=== PATIENT | female | born 1935 | race Caucasian/White ===

== ENCOUNTER → 2019-10-11 | Outpatient (CLI) | payer MEDICARE ==
[~2019-10-11] MED LIST: IOHEXOL-350 75 ML VIAL IV ONE
== END | disposition home or self-care (01) ==
LOC: RAH 07:43
PROVIDERS: ATTEND Family Medicine
DX: K76.89 Other specified diseases of liver (principal)
CPT/HCPCS: 71275; Q9967

== ENCOUNTER → 2019-11-24 | Outpatient (CLI) | payer MEDICARE | END | disposition home or self-care (01) | LOC: SHCH 10:37 | PROVIDERS: ATTEND Internal Medicine Cardiovascular Disease | DX: R06.00 Dyspnea, unspecified (principal) | CPT/HCPCS: 93306; 93356 ==

== ENCOUNTER → 2020-01-23 | Outpatient (CLI) | payer MEDICARE | END | disposition home or self-care (01) | LOC: SHCH 14:38 | PROVIDERS: ATTEND Internal Medicine Cardiovascular Disease | DX: I87.2 Venous insufficiency (chronic) (peripheral) (principal) | CPT/HCPCS: 93970 ==

== ENCOUNTER → 2020-02-12 | Outpatient (CLI) | payer MEDICARE | END | disposition home or self-care (01) | LOC: RAH 12:16 | PROVIDERS: ATTEND Internal Medicine Cardiovascular Disease | DX: I35.8 Other nonrheumatic aortic valve disorders (principal) | CPT/HCPCS: 93306; 93356 ==

== ENCOUNTER → 2020-02-16 | Outpatient (CLI) | payer MEDICARE ==
[~2020-02-16] MED LIST changes: -IOHEXOL-350 75 ML VIAL IV ONE; +REGADENOSON 0.4 MG/5 ML PF SYG IVP SCH
== END | disposition home or self-care (01) ==
LOC: SHCH 08:58
PROVIDERS: ATTEND Internal Medicine Cardiovascular Disease
DX: I50.1 Left ventricular failure, unspecified (principal); R07.9 Chest pain, unspecified
CPT/HCPCS: 78452; 93017; 96374; A9500 ×2; J2785

== ENCOUNTER 2020-03-03 01:31 | Inpatient (IN) | payer MEDICARE ==
[2020-03-03] MEDS ORDERED: ASPIRIN 325 MG TABLET ONE (01:50)
[2020-03-03 02:02] LABS: BASOPHILS % (AUTO) 1.8 % (0.0-5.0); EOSINOPHILS % (AUTO) 21.6 % (0.0-8.0); HEMATOCRIT 45.1 % (36-48); LYMPHOCYTES % (AUTO) 33.2 % (21.0-51.0); MEAN CORPUSCULAR HEMOGLOBIN 28.7 pg (27.0-33.0); MEAN CORPUSCULAR HGB CONC 31.9 g/dL (32.0-36.0); MONOCYTES % (AUTO) 15.4 % (3.0-13.0); NEUTROPHILS % (AUTO) 27.4 % (40.0-77.0); PLATELET COUNT (AUTO) 109 K/uL (130-400); RED BLOOD CELL COUNT(AUTO) 5.01 MIL/uL (4.00-5.50); RED CELL DISTRIBUTION WIDTH 15.8 % (11.0-15.5); WHITE BLOOD COUNT (AUTO) 19.2 K/uL (4.8-10.8)
[2020-03-03 02:12] LABS: CREATININE 0.8 mg/dL (0.5-1.5); POTASSIUM 3.7 mmol/L (3.5-5.1)
[2020-03-03 02:16] LABS: ALBUMIN 3.3 g/dL (3.5-5.0); BILIRUBIN,TOTAL 1.8 mg/dL (0.2-1.0); TOTAL PROTEIN, SERUM 5.7 g/dL (6.0-8.3)
[2020-03-03 02:19] LABS: INR 1.2 (0.85-1.15); PARTIAL THROMBOPLASTIN TIME 23.3 SEC (26.3-35.5); PROTHROMBIN TIME 12.9 SEC (9.6-11.6)
[2020-03-03] MEDS ORDERED: HEPARIN SODIUM 5000UNIT/ML 1ML VIAL ONE (02:44)
[2020-03-03] MEDS ORDERED: HEPARIN 25000 UNITS/250 ML D5W 250 ML IV ONE (02:44)
[2020-03-03] MEDS ORDERED: NITROGLYCERIN 0.4 MG SL TAB SL PRN (04:30)
[2020-03-03] MEDS ORDERED: MORPHINE SULFATE 2 MG/ML 1ML SYG IV PRN (04:30)
[2020-03-03] MEDS ORDERED: ONDANSETRON HCL 4 MG/2 ML VIAL IV PRN (04:30)
[2020-03-03] MEDS ORDERED: LACTULOSE 20 GM/30 ML UDCUP PO PRN (04:30)
[2020-03-03] MEDS ORDERED: ACETAMINOPHEN 325 MG TAB PO PRN ×2 (04:30)
[2020-03-03 04:59] LABS: THYROID STIMULATING HORMONE 3.12 uIU/mL (0.36-3.74)
[2020-03-03 05:15] LABS: APPEARANCE,URINE Cloudy (CLEAR); BILIRUBIN,URINE Small (NEGATIVE); COLOR,URINE Dark Yellow (YELLOW); GLUCOSE, URINE (UA) Negative (NEGATIVE); KETONES,URINE Negative (NEGATIVE); LEUKOCYTE ESTERASE ,URINE Trace (NEGATIVE); NITRATE,URINE Negative (NEGATIVE); OCCULT BLOOD,URINE Negative (NEGATIVE); PROTEIN,URINE Negative (NEGATIVE)
[2020-03-03 05:30] VITALS: BP 118/58
[2020-03-03] MEDS ORDERED: METO-408 PO (05:50)
[2020-03-03] MEDS ORDERED: POTA-9 PO (05:50)
[2020-03-03] MEDS ORDERED: FURO20TA4 PO (05:50)
[2020-03-03 07:06] LABS: BACTERIA,URINE Rare /HPF (None Seen); CALCIUM OXALATE CRYSTALS,UR Moderate /LPF (None Seen); MUCUS,URINE Rare LPF (None Seen); RBC,URINE 0-1 /HPF (0-1); SQUAMOUS EPITHELIAL CELL,UR Rare /HPF (0-2); WBC,URINE 0-1 /HPF (0-1)
[2020-03-03 07:51] VITALS: BP 100/53
[2020-03-03] MEDS ORDERED: HEPARIN 25000 UNITS/250 ML D5W 250 ML IV SCH (08:45)
[2020-03-03] MEDS ORDERED: ASPIRIN 81MG TAB.CHEW PO SCH (09:00)
[2020-03-03] MEDS ORDERED: METOPROLOL TARTRATE 25 MG TAB PO SCH (09:00)
[2020-03-03 10:18] LABS: BASOPHILS % (AUTO) 1.6 % (0.0-5.0); EOSINOPHILS % (AUTO) 20.4 % (0.0-8.0); HEMATOCRIT 38.1 % (36-48); LYMPHOCYTES % (AUTO) 39.8 % (21.0-51.0); MEAN CORPUSCULAR HEMOGLOBIN 28.7 pg (27.0-33.0); MEAN CORPUSCULAR HGB CONC 32.5 g/dL (32.0-36.0); MEAN CORPUSCULAR VOLUME 88.2 fL (79-99); MONOCYTES % (AUTO) 14.8 % (3.0-13.0); NEUTROPHILS % (AUTO) 22.9 % (40.0-77.0); PLATELET COUNT (AUTO) 84 K/uL (130-400); RED BLOOD CELL COUNT(AUTO) 4.32 MIL/uL (4.00-5.50); RED CELL DISTRIBUTION WIDTH 15.4 % (11.0-15.5); WHITE BLOOD COUNT (AUTO) 19.4 K/uL (4.8-10.8)
[2020-03-03] MEDS: FAMOTIDINE 20MG TAB 20 MG TAB PO SCH ×2 (10:42→20:49)
[2020-03-03 11:45] VITALS: BP 92/51
[2020-03-03] MEDS ORDERED: TICAGRELOR 90 MG TABLET PO SCH ×2 (11:45→21:00)
[2020-03-03] MEDS: METOPROLOL TARTRATE 25 MG TAB PO SCH ×3 (13:30→20:55)
[2020-03-03] MEDS ORDERED: CLOPIDOGREL BISULFATE 75 MG TAB PO SCH (13:30)
[2020-03-03] MEDS ORDERED: CLOPIDOGREL BISULFATE 300 MG TAB PO SCH (13:45)
[2020-03-03] MEDS ORDERED: IOHEXOL 350 MG/ML 100ML INFUS..BTL IV ONE (13:57)
[2020-03-03] MEDS ORDERED: METOPROLOL TARTRATE 1 MG/ML 5ML VIAL IV ONE (15:39)
[2020-03-03] MEDS ORDERED: METOPROLOL TARTRATE 1 MG/ML 5ML VIAL IV SCH (15:45)
[2020-03-03 16:23] VITALS: BP 109/70
[2020-03-03] MEDS ORDERED: SODIUM CHLORIDE 0.9% 500ML 500 ML IV SCH (17:30)
[2020-03-03 20:00] VITALS: BP_SYST 102; BP_SYST 143; BP_DIAS 51; BP_DIAS 76
[2020-03-03] MEDS: FUROSEMIDE 10 MG/ML 2ML VIAL IV SCH (20:50)
[2020-03-03] MEDS ORDERED: ATORVASTATIN CALCIUM 20 MG TABLET PO SCH (21:00)
[2020-03-04] VITALS (12 sets, daily range): BP systolic 88–121; BP diastolic 45–69
[2020-03-04 05:28] LABS: BASOPHILS % (AUTO) 1.8 % (0.0-5.0); EOSINOPHILS % (AUTO) 21.2 % (0.0-8.0); LYMPHOCYTES % (AUTO) 39.4 % (21.0-51.0); MEAN CORPUSCULAR HEMOGLOBIN 28.2 pg (27.0-33.0); MEAN CORPUSCULAR HGB CONC 32.1 g/dL (32.0-36.0); MONOCYTES % (AUTO) 14.1 % (3.0-13.0); NEUTROPHILS % (AUTO) 22.9 % (40.0-77.0); PLATELET COUNT (AUTO) 90 K/uL (130-400); RED BLOOD CELL COUNT(AUTO) 4.43 MIL/uL (4.00-5.50); RED CELL DISTRIBUTION WIDTH 15.6 % (11.0-15.5); WHITE BLOOD COUNT (AUTO) 19.2 K/uL (4.8-10.8)
[2020-03-04 05:43] LABS: INR 1.29 (0.85-1.15); PARTIAL THROMBOPLASTIN TIME 24.6 SEC (26.3-35.5); PROTHROMBIN TIME 13.8 SEC (9.6-11.6)
[2020-03-04 05:51] LABS: CREATININE 0.7 mg/dL (0.5-1.5); POTASSIUM 3.3 mmol/L (3.5-5.1)
[2020-03-04] MEDS ORDERED: CLOPIDOGREL BISULFATE 75 MG TAB PO SCH (09:00)
[2020-03-04] MEDS: FUROSEMIDE 10 MG/ML 2ML VIAL IV SCH (10:04)
[2020-03-04] MEDS: METOPROLOL TARTRATE 25 MG TAB PO SCH (10:05)
[2020-03-04] MEDS ORDERED: HEPARIN SODIUM 1000UNIT/ML 10ML VIAL ONE (10:12)
[2020-03-04] MEDS ORDERED: MIDAZOLAM HCL 1 MG/ML 2ML VIAL ONE (10:12)
[2020-03-04] MEDS ORDERED: NICARDIPINE HCL 25 MG/10 ML ML IV ONE (10:12)
[2020-03-04] MEDS ORDERED: NITROGLYCERIN 2 MG/VIAL VIAL IV ONE (10:12)
[2020-03-04] MEDS ORDERED: FENTANYL CITRATE PF 50 MCG/1 ML 2ML VIAL ONE (10:12)
[2020-03-04] MEDS ORDERED: IOHEXOL 350 MG/ML 100ML INFUS..BTL IV ONE (10:12)
[2020-03-04] MEDS ORDERED: LIDOCAINE HCL 2% 20ML ONE (10:13)
[2020-03-04] MEDS ORDERED: LIDOCAINE HCL-MPF 1% 2ML VIAL IV PRN (10:15)
[2020-03-04] MEDS ORDERED: MAGNESIUM 2GM PREMIX 50ML 50 ML IV PRN (10:15)
[2020-03-04] MEDS ORDERED: POTASSIUM CHLORIDE 20MEQ/100ML 100 ML IV PRN (10:15)
[2020-03-04] MEDS ORDERED: POTASSIUM CHLORIDE 10% ELIXIR 20 MEQ/15 ML UDCUP PO PRN (10:15)
[2020-03-04] MEDS ORDERED: POTASSIUM CHLORIDE 20 MEQ ERTAB PO PRN (10:15)
[2020-03-04] MEDS ORDERED: POTASSIUM CHLORIDE 20MEQ/100ML 100 ML IV ONE (10:23)
[2020-03-04] MEDS ORDERED: MAGNESIUM 2GM PREMIX 50ML 50 ML IV ONE (10:23)
[2020-03-04] MEDS ORDERED: FUROSEMIDE 20 MG TABLET PO SCH (12:30)
[2020-03-04] MEDS ORDERED: ASPI-1005 PO (12:59)
[2020-03-04] MEDS ORDERED: FURO20TA6 PO (12:59)
[2020-03-04] MEDS ORDERED: POTA-9 PO (12:59)
[2020-03-04] MEDS ORDERED: METO25 PO (12:59)
== END 2020-03-04 17:30 | disposition home or self-care (01) | DRG 280 ==
LOC: EDH 01:31 → EDHIP 04:18 → OBSVTOIN 04:18 → 4CH 05:18
PROVIDERS: ADMIT Internal Medicine; ATTEND Internal Medicine
PROC: 4A023N7 Measurement of Cardiac Sampling and Pressure, Left Heart, Percutaneous Approach (ICD-10-PCS; principal; 2020-03-04)
PROC: B2111ZZ Fluoroscopy of Multiple Coronary Arteries using Low Osmolar Contrast (ICD-10-PCS; 2020-03-04)
PROC: B41F1ZZ Fluoroscopy of Right Lower Extremity Arteries using Low Osmolar Contrast (ICD-10-PCS; 2020-03-04)
DX: I25.10 Atherosclerotic heart disease of native coronary artery without angina pectoris (principal); I50.31 Acute diastolic (congestive) heart failure; I21.A1 Myocardial infarction type 2; R00.2 Palpitations; D72.829 Elevated white blood cell count, unspecified; Z20.828 Contact with and (suspected) exposure to other viral communicable diseases; I87.2 Venous insufficiency (chronic) (peripheral); E04.1 Nontoxic single thyroid nodule; E78.5 Hyperlipidemia, unspecified; Z79.82 Long term (current) use of aspirin; Z79.899 Other long term (current) drug therapy; Z83.3 Family history of diabetes mellitus; Z98.51 Tubal ligation status
CPT/HCPCS: 36415; 71045; 75574; 80048; 80053; 80061; 81001; 82550; 83735; 83880; 84443; 84484; 85025; 85610; 85730; 87088; 87426; 93005; 93458; 99156; 99157; C1760; C1894; G0378; J1644; J1940; J2250; J3010; J3475; J3480; J3490; J7040; Q9967; U0003

== ENCOUNTER 2020-04-16 18:40 | Inpatient (IN) | payer MEDICARE ==
[~2020-04-16] VITALS: Ht 154.9 cm; Wt 67.6 kg
[~2020-04-16 18:40] MED LIST changes: +ASPI-1005 PO; +FURO20TA6 PO; +METO25 PO; +POTA-10 PO; -REGADENOSON 0.4 MG/5 ML PF SYG IVP SCH
[2020-04-16 19:12] LABS: BASOPHILS % (AUTO) 0.2 % (0.0-5.0); EOSINOPHILS % (AUTO) 0.1 % (0.0-8.0); HEMATOCRIT 33.5 % (36-48); LYMPHOCYTES % (AUTO) 40.8 % (21.0-51.0); MEAN CORPUSCULAR HEMOGLOBIN 29.7 pg (27.0-33.0); MEAN CORPUSCULAR HGB CONC 33.7 g/dL (32.0-36.0); MEAN CORPUSCULAR VOLUME 87.9 fL (79-99); MONOCYTES % (AUTO) 0.8 % (3.0-13.0); NEUTROPHILS % (AUTO) 57.3 % (40.0-77.0); PLATELET COUNT (AUTO) 41 K/uL (130-400); RED BLOOD CELL COUNT(AUTO) 3.81 MIL/uL (4.00-5.50); RED CELL DISTRIBUTION WIDTH 16.2 % (11.0-15.5); WHITE BLOOD COUNT (AUTO) 11.3 K/uL (4.8-10.8)
[2020-04-16 19:32] LABS: INR 1.19 (0.85-1.15); PROTHROMBIN TIME 12.5 SEC (9.6-11.6)
[2020-04-16 19:33] LABS: PARTIAL THROMBOPLASTIN TIME 25.9 SEC (26.3-35.5)
[2020-04-16] MEDS ORDERED: 0.9%NACL 1000ML 1,000 ML IV ONE ×2 (19:43→21:27)
[2020-04-16 19:46] LABS: B-TYPE NATRIURETIC PEPTIDE 691 pg/mL (0-100)
[2020-04-16 19:51] LABS: ALANINE AMINOTRANSFERASE 12 U/L (12-78); ALBUMIN 2.7 g/dL (3.5-5.0); ASPARTATE AMINOTRANSFERASE 17 U/L (10-37); BILIRUBIN,TOTAL 0.7 mg/dL (0.2-1.0); CARBON DIOXIDE 17 mmol/L (21-32); CHLORIDE 99 mmol/L (101-111); CREATINE KINASE, TOTAL 8 U/L (21-232); CREATININE 2.3 mg/dL (0.5-1.5); GLOMERULAR FILTR. RATE CALC 22 mL/min (>60); GLUCOSE,RANDOM 131 mg/dL (70-105); SODIUM SERUM 134 mmol/L (136-145); TOTAL PROTEIN, SERUM 4.9 g/dL (6.0-8.3)
[2020-04-16 19:53] LABS: APPEARANCE,URINE Cloudy (CLEAR); BILIRUBIN,URINE Negative (NEGATIVE); COLOR,URINE Yellow (YELLOW); GLUCOSE, URINE (UA) TRACE mg/dL (NEGATIVE); KETONES,URINE Negative (NEGATIVE); LEUKOCYTE ESTERASE ,URINE Trace (NEGATIVE); NITRATE,URINE Negative (NEGATIVE); OCCULT BLOOD,URINE Small (NEGATIVE); PH,URINE 5.5 (5.0-8.0); PROTEIN,URINE 300 mg/dL (NEGATIVE); UROBILINOGEN,URINE 0.2 mg/dL (0.2-1.0)
[2020-04-16 19:55] LABS: UREA NITROGEN, BLOOD 131 mg/dL (7-18)
[2020-04-16 19:56] LABS: CRP QUANTITATIVE < 2.00 mg/L (0.00-9.0)
[2020-04-16 20:12] LABS: BACTERIA,URINE Few /HPF (None Seen); SQUAMOUS EPITHELIAL CELL,UR 0-2 /HPF (0-2); URIC ACID CRYSTALS,URINE Many /LPF (None Seen)
[2020-04-16 20:33] LABS: CREATININE 2.3 mg/dL (0.5-1.5)
[2020-04-16] MEDS ORDERED: KAYEXALATE 15GM/60ML ONE (20:40)
[2020-04-16] MEDS ORDERED: CALCIUM GLUC 1GM/10ML VIAL IV ONE (20:40)
[2020-04-16] MEDS ORDERED: DEXTROSE 50%-WATER 50 ML DISP.SYRIN IV ONE (20:41)
[2020-04-16] MEDS ORDERED: SODIUM BICARB 50MEQ 50ML VIAL 50 ML ONE (20:41)
[2020-04-16] MEDS ORDERED: INSULIN HUMULIN R 100 UNIT/ML 3ML ONE (20:42)
[2020-04-16] MEDS ORDERED: 0.9%NACL 50ML 50 ML IV ONE (20:48)
[2020-04-16] MEDS ORDERED: ALBUTEROL 0.083% 2.5 MG/3 ML INH IH ONE (21:21)
[2020-04-16] MEDS ORDERED: GUAIFENESIN-DM 200/20 MG 10 ML PO PRN (21:45)
[2020-04-16] MEDS ORDERED: ACETAMINOPHEN 325 MG TAB PO PRN (21:45)
[2020-04-16] MEDS ORDERED: DiphenhydrAMINE HCL 50 MG/ML VIAL IV PRN (21:45)
[2020-04-16] MEDS ORDERED: DIPHENHYDRAMINE HCL 25 MG CAPSULE PO PRN (21:45)
[2020-04-16] MEDS ORDERED: NITROGLYCERIN 0.4 MG SL TAB SL PRN (21:45)
[2020-04-16] MEDS ORDERED: ONDANSETRON 4MG INJ IV PRN (21:45)
[2020-04-16] MEDS ORDERED: MAG/ALUM/SIMETH 30 ML UDCUP PO PRN (21:45)
[2020-04-16] MEDS ORDERED: LACTULOSE 20 GM/30 ML UDCUP PO PRN (21:45)
[2020-04-16 21:58] LABS: URIC ACID 44.3 mg/dL (2.6-7.2)
[2020-04-16 22:27] LABS: PHOSPHORUS 21.6 mg/dL (2.5-4.9)
[2020-04-16] MEDS: ALLOPURINOL 100 MG TABLET PO SCH (23:00)
[2020-04-16] MEDS ORDERED: DEXTROSE 5 % AND 0.9 % NACL 1,000 ML IV SCH (23:30)
[2020-04-16 23:31] LABS: ALBUMIN 2.4 g/dL (3.5-5.0); BILIRUBIN,TOTAL 0.6 mg/dL (0.2-1.0); CREATININE 2.5 mg/dL (0.5-1.5); TOTAL PROTEIN, SERUM 4.5 g/dL (6.0-8.3)
[2020-04-16 23:42] LABS: POTASSIUM 8.6 mmol/L (3.5-5.1)
[2020-04-16] MEDS ORDERED: DEXTROSE 5 % AND 0.9 % NACL 1,000 ML IV ONE (23:49)
[2020-04-17] VITALS (9 sets, daily range): BP systolic 98–124; BP diastolic 48–74
[2020-04-17] MEDS: CALCIUM GLUC 1GM/10ML VIAL IV SCH ×2 (01:15→08:13)
[2020-04-17] MEDS: FUROSEMIDE 20MG VIAL IV SCH ×2 (01:15→08:13)
[2020-04-17] MEDS ORDERED: SODIUM BICARB 50MEQ 50ML VIAL IV ONE (01:15)
[2020-04-17] MEDS: INSULIN HUMULIN R 100 UNIT/ML 3ML SQ SCH ×2 (01:15→08:13)
[2020-04-17] MEDS ORDERED: ALBUTEROL 0.083% 2.5 MG/3 ML INH IH ONE ×2 (01:15→02:03)
[2020-04-17] MEDS: DEXTROSE 50%-WATER 25 GM/50 ML VIAL IV SCH ×2 (01:15→08:13)
[2020-04-17] MEDS ORDERED: CALCIUM GLUC 1GM/10ML VIAL IV ONE (01:50)
[2020-04-17] MEDS ORDERED: FUROSEMIDE 20MG VIAL ONE (01:50)
[2020-04-17] MEDS ORDERED: SODIUM BICARB 50MEQ 50ML VIAL 50 ML ONE (01:50)
[2020-04-17] MEDS ORDERED: DEXTROSE 50%-WATER 50 ML DISP.SYRIN IV ONE (01:51)
[2020-04-17] MEDS ORDERED: INSULIN HUMULIN R 100 UNIT/ML 3ML ONE (01:52)
[2020-04-17 03:44] LABS: BASOPHILS % (AUTO) 0.2 % (0.0-5.0); EOSINOPHILS % (AUTO) 0.1 % (0.0-8.0); HEMATOCRIT 32.2 % (36-48); LYMPHOCYTES % (AUTO) 38.1 % (21.0-51.0); MEAN CORPUSCULAR HEMOGLOBIN 29.8 pg (27.0-33.0); MEAN CORPUSCULAR HGB CONC 33.2 g/dL (32.0-36.0); MEAN CORPUSCULAR VOLUME 89.7 fL (79-99); MONOCYTES % (AUTO) 0.9 % (3.0-13.0); NUCLEATED RED BLOOD CELLS 0.1 % (0.0-0.19); PLATELET COUNT (AUTO) 54 K/uL (130-400); RED BLOOD CELL COUNT(AUTO) 3.59 MIL/uL (4.00-5.50); RED CELL DISTRIBUTION WIDTH 16.3 % (11.0-15.5); WHITE BLOOD COUNT (AUTO) 13.8 K/uL (4.8-10.8)
[2020-04-17 04:15] LABS: ALBUMIN 2.5 g/dL (3.5-5.0); BILIRUBIN,TOTAL 0.6 mg/dL (0.2-1.0); CREATININE 2.6 mg/dL (0.5-1.5); TOTAL PROTEIN, SERUM 4.6 g/dL (6.0-8.3)
[2020-04-17 04:19] LABS: POTASSIUM 8.4 mmol/L (3.5-5.1)
[2020-04-17 07:14] LABS: ALBUMIN 2.2 g/dL (3.5-5.0); BILIRUBIN,TOTAL 0.6 mg/dL (0.2-1.0); CREATININE 2.6 mg/dL (0.5-1.5); TOTAL PROTEIN, SERUM 4.7 g/dL (6.0-8.3)
[2020-04-17 07:33] LABS: POTASSIUM 8.5 mmol/L (3.5-5.1)
[2020-04-17] MEDS: ALLOPURINOL 100 MG TABLET PO SCH (08:13)
[2020-04-17] MEDS ORDERED: KAYEXALATE 15GM/60ML PO SCH (08:30)
[2020-04-17 08:33] LABS: ALBUMIN 2.2 g/dL (3.5-5.0); BILIRUBIN,TOTAL 0.6 mg/dL (0.2-1.0); CREATININE 2.7 mg/dL (0.5-1.5); TOTAL PROTEIN, SERUM 4.7 g/dL (6.0-8.3)
[2020-04-17 08:38] LABS: POTASSIUM 8.3 mmol/L (3.5-5.1)
[2020-04-17] MEDS ORDERED: CALCIUM GLUC 1GM/10ML VIAL IV SCH (09:45)
[2020-04-17] MEDS ORDERED: CALCIUM GLUC 1GM 1 GM in 0.9%NACL 100ML 100 ML IV SCH (10:00)
[2020-04-17] MEDS ORDERED: FUROSEMIDE 100MG VIAL IV SCH (10:00)
[2020-04-17] MEDS: DEXTROSE 5 % AND 0.9 % NACL 1,000 ML IV SCH ×2 (10:07→22:35)
[2020-04-17] MEDS: SODIUM BICARBONATE 650 MG TAB PO SCH ×3 (10:08→22:33)
[2020-04-17 12:20] LABS: ALBUMIN 2.5 g/dL (3.5-5.0); BILIRUBIN,TOTAL 0.6 mg/dL (0.2-1.0); CREATININE 2.7 mg/dL (0.5-1.5); TOTAL PROTEIN, SERUM 4.7 g/dL (6.0-8.3)
[2020-04-17 12:27] LABS: POTASSIUM 8.6 mmol/L (3.5-5.1)
[2020-04-17 13:49] LABS: CHLORIDE,URINE RANDOM 59 mmol/L (110-250); CREATININE,URINE RANDOM 25 mg/dL (30-135); POTASSIUM,URINE RANDOM 44 mmol/L (25-125); SODIUM,URINE RANDOM 39 mmol/l (40-220)
[2020-04-17] MEDS: NYSTATIN 100000 UNIT/ML 5ML UDCUP PO SCH ×2 (15:09→22:33)
[2020-04-17] MEDS ORDERED: HEPARIN 1,000 UNIT VIAL ONE (15:16)
[2020-04-17] MEDS ORDERED: LIDOCAINE HCL 1% MDV 50ML VIAL ONE (15:17)
[2020-04-17 15:51] LABS: ALBUMIN 2.4 g/dL (3.5-5.0); BILIRUBIN,TOTAL 0.6 mg/dL (0.2-1.0); CREATININE 2.8 mg/dL (0.5-1.5); TOTAL PROTEIN, SERUM 4.7 g/dL (6.0-8.3)
[2020-04-17 15:55] LABS: POTASSIUM 8.3 mmol/L (3.5-5.1)
[2020-04-17] MEDS ORDERED: HEPARIN 5,000 UNIT VIAL ONE (20:05)
[2020-04-17 22:07] LABS: HEMATOCRIT 30.8 % (36-48)
[2020-04-17 22:21] LABS: ALBUMIN 2.6 g/dL (3.5-5.0); CREATININE 2.2 mg/dL (0.5-1.5)
[2020-04-17 23:11] LABS: % IRON SATURATION 73.4 % (22-44)
[2020-04-18 03:15] VITALS: BP 134/58
[2020-04-18] MEDS: NYSTATIN 100000 UNIT/ML 5ML UDCUP PO SCH ×2 (03:40→11:51)
[2020-04-18 04:54] LABS: BASOPHILS % (AUTO) 0.3 % (0.0-5.0); EOSINOPHILS % (AUTO) 0.3 % (0.0-8.0); HEMATOCRIT 28.1 % (36-48); LYMPHOCYTES % (AUTO) 27.9 % (21.0-51.0); MEAN CORPUSCULAR HEMOGLOBIN 29.4 pg (27.0-33.0); MEAN CORPUSCULAR HGB CONC 33.5 g/dL (32.0-36.0); MEAN CORPUSCULAR VOLUME 87.8 fL (79-99); MONOCYTES % (AUTO) 0.3 % (3.0-13.0); NEUTROPHILS % (AUTO) 70.1 % (40.0-77.0); PLATELET COUNT (AUTO) 19 K/uL (130-400); WHITE BLOOD COUNT (AUTO) 7.9 K/uL (4.8-10.8)
[2020-04-18] MEDS: DEXTROSE 5 % AND 0.9 % NACL 1,000 ML IV SCH (05:45)
[2020-04-18 07:59] VITALS: BP 116/52
[2020-04-18 09:06] LABS: ALBUMIN 2.3 g/dL (3.5-5.0); BILIRUBIN,TOTAL 0.7 mg/dL (0.2-1.0); CREATININE 2.6 mg/dL (0.5-1.5); TOTAL PROTEIN, SERUM 4.4 g/dL (6.0-8.3)
[2020-04-18] MEDS: SODIUM BICARBONATE 650 MG TAB PO SCH ×3 (09:31→20:29)
[2020-04-18] MEDS ORDERED: PHARMACY COMMUNICATION MISC SCH (10:15)
[2020-04-18] MEDS: BIOTENE 44.3 ML SOLUTION MM SCH ×3 (11:51→21:33)
[2020-04-18 12:00] VITALS: BP 117/51
[2020-04-18 16:00] VITALS: BP 151/67
[2020-04-18] MEDS: CLOTRIMAZOLE 10 MG TROCHE MM SCH ×2 (17:17→21:34)
[2020-04-18] MEDS ORDERED: HEPARIN 5,000 UNIT VIAL ONE (17:44)
[2020-04-18] MEDS ORDERED: DiphenhydrAMINE HCL 50 MG/ML VIAL IV SCH (17:45)
[2020-04-18] MEDS ORDERED: DEXAMETHASONE 10MG/ML 1ML VIAL 0 MG in 0.9%NACL 50ML 50 ML IV SCH (17:45)
[2020-04-18] MEDS ORDERED: DEXAMETHASONE SOD PHOSPHATE 4 MG/ML 1ML VIAL IVP SCH (18:00)
[2020-04-18 19:17] VITALS: BP 108/48
[2020-04-18] MEDS: ALLOPURINOL 100 MG TABLET PO SCH (23:00)
[2020-04-18 23:29] VITALS: BP 127/60
[2020-04-19 04:00] VITALS: BP 115/52
[2020-04-19 05:52] LABS: BASOPHILS % (AUTO) 0.7 % (0.0-5.0); HEMATOCRIT 25.7 % (36-48); LYMPHOCYTES % (AUTO) 31.5 % (21.0-51.0); MEAN CORPUSCULAR HGB CONC 33.1 g/dL (32.0-36.0); MEAN CORPUSCULAR VOLUME 87.7 fL (79-99); MONOCYTES % (AUTO) 0.2 % (3.0-13.0); NEUTROPHILS % (AUTO) 64.8 % (40.0-77.0); PLATELET COUNT (AUTO) 23 K/uL (130-400); RED BLOOD CELL COUNT(AUTO) 2.93 MIL/uL (4.00-5.50); RED CELL DISTRIBUTION WIDTH 15.6 % (11.0-15.5); WHITE BLOOD COUNT (AUTO) 4.6 K/uL (4.8-10.8)
[2020-04-19 06:20] LABS: ALBUMIN 2.3 g/dL (3.5-5.0); BILIRUBIN,TOTAL 0.9 mg/dL (0.2-1.0); CREATININE 2.4 mg/dL (0.5-1.5); MAGNESIUM 2.6 mg/dL (1.80-2.40); PHOSPHORUS 12.8 mg/dL (2.5-4.9); POTASSIUM 5.9 mmol/L (3.5-5.1); TOTAL PROTEIN, SERUM 4.6 g/dL (6.0-8.3); URIC ACID 25.1 mg/dL (2.6-7.2)
[2020-04-19 07:52] VITALS: BP 114/62
[2020-04-19] MEDS: INSULIN HUMULIN R 100 UNIT/ML 3ML SQ SCH (09:11)
[2020-04-19] MEDS: FUROSEMIDE 20MG VIAL IV SCH (09:11)
[2020-04-19] MEDS: DEXTROSE 50%-WATER 25 GM/50 ML VIAL IV SCH (09:11)
[2020-04-19] MEDS: CLOTRIMAZOLE 10 MG TROCHE MM SCH ×4 (09:13→20:16)
[2020-04-19 09:14] LABS: HEPATITIS Bs ANTIGEN SCREEN P Negative (Negative)
[2020-04-19] MEDS: SODIUM BICARBONATE 650 MG TAB PO SCH ×3 (09:14→20:16)
[2020-04-19] MEDS: BIOTENE 44.3 ML SOLUTION MM SCH ×3 (09:16→20:17)
[2020-04-19 12:52] VITALS: BP 119/60
[2020-04-19 16:53] VITALS: BP 107/66
[2020-04-19] MEDS: ALLOPURINOL 100 MG TABLET PO SCH (17:12)
[2020-04-19 19:28] VITALS: BP 116/62
[2020-04-19 23:23] VITALS: BP 118/58
[2020-04-20] MEDS: INSULIN HUMULIN R 100 UNIT/ML 3ML SQ SCH ×2 (01:15→20:15)
[2020-04-20] MEDS: FUROSEMIDE 20MG VIAL IV SCH ×2 (01:15→19:51)
[2020-04-20 03:35] VITALS: BP 116/58
[2020-04-20 05:18] LABS: BASOPHILS % (AUTO) 0.8 % (0.0-5.0); HEMATOCRIT 23.8 % (36-48); LYMPHOCYTES % (AUTO) 26.7 % (21.0-51.0); MEAN CORPUSCULAR HEMOGLOBIN 29.4 pg (27.0-33.0); MEAN CORPUSCULAR HGB CONC 33.2 g/dL (32.0-36.0); MEAN CORPUSCULAR VOLUME 88.5 fL (79-99); MONOCYTES % (AUTO) 0.4 % (3.0-13.0); NEUTROPHILS % (AUTO) 62.8 % (40.0-77.0); PLATELET COUNT (AUTO) 14 K/uL (130-400); RED BLOOD CELL COUNT(AUTO) 2.69 MIL/uL (4.00-5.50); RED CELL DISTRIBUTION WIDTH 15.6 % (11.0-15.5); WHITE BLOOD COUNT (AUTO) 2.5 K/uL (4.8-10.8)
[2020-04-20 05:37] LABS: % IRON SATURATION 70.4 % (22-44)
[2020-04-20 05:44] LABS: CREATININE 2.2 mg/dL (0.5-1.5); PHOSPHORUS 9.7 mg/dL (2.5-4.9); POTASSIUM 4.9 mmol/L (3.5-5.1)
[2020-04-20 06:30] LABS: BAND NEUTROPHILS % (MANUAL) 5 % (0-2); EOSINOPHILS % (MANUAL) 5 % (1-6); LYMPHOCYTES % (MANUAL) 22 % (22-44); MONOCYTES % (MANUAL) 1 % (2-9); SEGMENTED NEUTROPHILS % 67 % (40-70)
[2020-04-20 06:31] LABS: MAN.DIFF COMMENT-IMPRESSION MANUAL DIFFERENTIAL; PLATELET MORPHOLOGY COMMENT MARKED DECREASE
[2020-04-20] MEDS: BIOTENE 44.3 ML SOLUTION MM SCH ×3 (07:54→20:24)
[2020-04-20] MEDS: CLOTRIMAZOLE 10 MG TROCHE MM SCH ×4 (07:54→20:24)
[2020-04-20] MEDS: ALLOPURINOL 100 MG TABLET PO SCH (07:54)
[2020-04-20] MEDS: SODIUM BICARBONATE 650 MG TAB PO SCH ×2 (07:54→13:39)
[2020-04-20] MEDS: DEXTROSE 50%-WATER 25 GM/50 ML VIAL IV SCH ×2 (08:07→19:50)
[2020-04-20 09:16] VITALS: BP 114/52
[2020-04-20 11:53] VITALS: BP 114/59
[2020-04-20 15:46] LABS: HEMATOCRIT 24.7 % (36-48); MEAN CORPUSCULAR HEMOGLOBIN 29.4 pg (27.0-33.0); MEAN CORPUSCULAR HGB CONC 33.2 g/dL (32.0-36.0); MEAN CORPUSCULAR VOLUME 88.5 fL (79-99); RED BLOOD CELL COUNT(AUTO) 2.79 MIL/uL (4.00-5.50); RED CELL DISTRIBUTION WIDTH 15.5 % (11.0-15.5); WHITE BLOOD COUNT (AUTO) 2.6 K/uL (4.8-10.8)
[2020-04-20 15:59] LABS: INR 1.06 (0.85-1.15); PROTHROMBIN TIME 11.3 SEC (9.6-11.6)
[2020-04-20 16:37] VITALS: BP 119/58
[2020-04-20] MEDS: CALCIUM AC 667MG CAP PO SCH (17:11)
[2020-04-20] MEDS ORDERED: SIMETHICONE 80 MG TAB.CHEW PO PRN (17:30)
[2020-04-20 20:00] VITALS: BP 124/64
[2020-04-21] VITALS: BP 120/59
[2020-04-21 04:00] VITALS: BP 108/54
[2020-04-21 05:18] LABS: EOSINOPHILS % (AUTO) 4.5 % (0.0-8.0); HEMATOCRIT 23.9 % (36-48); MEAN CORPUSCULAR HEMOGLOBIN 28.8 pg (27.0-33.0); MEAN CORPUSCULAR HGB CONC 33.1 g/dL (32.0-36.0); MEAN CORPUSCULAR VOLUME 87.2 fL (79-99); MONOCYTES % (AUTO) 2.3 % (3.0-13.0); NEUTROPHILS % (AUTO) 57.1 % (40.0-77.0); PLATELET COUNT (AUTO) 38 K/uL (130-400); RED BLOOD CELL COUNT(AUTO) 2.74 MIL/uL (4.00-5.50); RED CELL DISTRIBUTION WIDTH 15.5 % (11.0-15.5); WHITE BLOOD COUNT (AUTO) 1.8 K/uL (4.8-10.8)
[2020-04-21 05:45] LABS: CREATININE 3.7 mg/dL (0.5-1.5); MAGNESIUM 2.2 mg/dL (1.80-2.40); PHOSPHORUS 10.8 mg/dL (2.5-4.9); POTASSIUM 5.2 mmol/L (3.5-5.1); URIC ACID 19.1 mg/dL (2.6-7.2)
[2020-04-21] MEDS ORDERED: TBO-FILGRASTIM 300 MCG/0.5 ML ML SQ SCH (08:15)
[2020-04-21 08:23] VITALS: BP 129/65
[2020-04-21] MEDS: CALCIUM AC 667MG CAP PO SCH ×3 (09:26→17:00)
[2020-04-21] MEDS: CLOTRIMAZOLE 10 MG TROCHE MM SCH ×4 (09:26→20:28)
[2020-04-21] MEDS: ALLOPURINOL 100 MG TABLET PO SCH (09:26)
[2020-04-21] MEDS: BIOTENE 44.3 ML SOLUTION MM SCH ×3 (09:27→20:29)
[2020-04-21 10:45] VITALS: BP 107/61
[2020-04-21 16:52] VITALS: BP 139/61
[2020-04-21 18:43] LABS: EOSINOPHILS % (AUTO) 0.8 % (0.0-8.0); HEMATOCRIT 28.2 % (36-48); LYMPHOCYTES % (AUTO) 10.3 % (21.0-51.0); MEAN CORPUSCULAR HEMOGLOBIN 29.4 pg (27.0-33.0); MEAN CORPUSCULAR VOLUME 86.2 fL (79-99); MONOCYTES % (AUTO) 1.1 % (3.0-13.0); PLATELET COUNT (AUTO) 39 K/uL (130-400); RED BLOOD CELL COUNT(AUTO) 3.27 MIL/uL (4.00-5.50); RED CELL DISTRIBUTION WIDTH 15.3 % (11.0-15.5); WHITE BLOOD COUNT (AUTO) 2.6 K/uL (4.8-10.8)
[2020-04-21 19:02] LABS: ALBUMIN 2.6 g/dL (3.5-5.0); BILIRUBIN,TOTAL 1.5 mg/dL (0.2-1.0); CREATININE 3.4 mg/dL (0.5-1.5); POTASSIUM 5.2 mmol/L (3.5-5.1); TOTAL PROTEIN, SERUM 5.1 g/dL (6.0-8.3)
[2020-04-21 19:27] LABS: BAND NEUTROPHILS % (MANUAL) 1 % (0-2); LYMPHOCYTES % (MANUAL) 11 % (22-44); SEGMENTED NEUTROPHILS % 88 % (40-70)
[2020-04-21 19:28] LABS: MAN.DIFF COMMENT-IMPRESSION MANUAL DIFFERENTIAL
[2020-04-21 20:00] VITALS: BP 138/64
[2020-04-21] MEDS ORDERED: CEFTRIAXONE 1G VIAL IVP SCH (21:00)
[2020-04-21] MEDS: FUROSEMIDE 20MG VIAL IV SCH (23:09)
[2020-04-21] MEDS: INSULIN HUMULIN R 100 UNIT/ML 3ML SQ SCH (23:09)
[2020-04-21] MEDS: DEXTROSE 50%-WATER 25 GM/50 ML VIAL IV SCH (23:09)
[2020-04-21] MEDS: ACETAMINOPHEN 325 MG TAB PO PRN (23:15)
[2020-04-22] VITALS: BP 124/56
[2020-04-22 04:00] VITALS: BP 110/54
[2020-04-22 05:36] LABS: BASOPHILS % (AUTO) 0.5 % (0.0-5.0); HEMATOCRIT 23.7 % (36-48); LYMPHOCYTES % (AUTO) 16.8 % (21.0-51.0); MEAN CORPUSCULAR HEMOGLOBIN 28.9 pg (27.0-33.0); MEAN CORPUSCULAR HGB CONC 33.8 g/dL (32.0-36.0); MEAN CORPUSCULAR VOLUME 85.6 fL (79-99); MONOCYTES % (AUTO) 1.9 % (3.0-13.0); NEUTROPHILS % (AUTO) 73.3 % (40.0-77.0); PLATELET COUNT (AUTO) 21 K/uL (130-400); RED BLOOD CELL COUNT(AUTO) 2.77 MIL/uL (4.00-5.50); RED CELL DISTRIBUTION WIDTH 15.1 % (11.0-15.5); WHITE BLOOD COUNT (AUTO) 2.1 K/uL (4.8-10.8)
[2020-04-22 06:05] LABS: ALBUMIN 2.2 g/dL (3.5-5.0); CREATININE 3.7 mg/dL (0.5-1.5); PHOSPHORUS 10.7 mg/dL (2.5-4.9); TOTAL PROTEIN, SERUM 4.4 g/dL (6.0-8.3); URIC ACID 19.2 mg/dL (2.6-7.2)
[2020-04-22 07:50] VITALS: BP 102/47
[2020-04-22] MEDS: ALLOPURINOL 100 MG TABLET PO SCH (08:18)
[2020-04-22] MEDS: CALCIUM AC 667MG CAP PO SCH ×3 (08:18→17:15)
[2020-04-22] MEDS: BIOTENE 44.3 ML SOLUTION MM SCH ×3 (08:18→21:00)
[2020-04-22] MEDS: CLOTRIMAZOLE 10 MG TROCHE MM SCH ×4 (09:00→21:00)
[2020-04-22 11:19] VITALS: BP 118/50
[2020-04-22] MEDS ORDERED: VANCOMYCIN PROTOCOL PER PHARMACY IV SCH (14:00)
[2020-04-22] MEDS ORDERED: VANCOMYCIN 1G/250ML KIT 250 ML IV SCH (15:00)
[2020-04-22 16:10] VITALS: BP 124/75
[2020-04-22] MEDS ORDERED: HEPARIN 5,000 UNIT VIAL ONE (17:12)
[2020-04-22 20:00] VITALS: BP 115/54
[2020-04-23] VITALS: BP 116/62
[2020-04-23] MEDS: DEXTROSE 50%-WATER 25 GM/50 ML VIAL IV SCH ×2 (01:15→07:30)
[2020-04-23] MEDS: FUROSEMIDE 20MG VIAL IV SCH ×2 (01:15→07:31)
[2020-04-23] MEDS: INSULIN HUMULIN R 100 UNIT/ML 3ML SQ SCH ×2 (01:15→07:31)
[2020-04-23 04:00] VITALS: BP 106/53
[2020-04-23 05:23] LABS: BASOPHILS % (AUTO) 0.8 % (0.0-5.0); HEMATOCRIT 22.8 % (36-48); LYMPHOCYTES % (AUTO) 31.7 % (21.0-51.0); MEAN CORPUSCULAR HEMOGLOBIN 29.3 pg (27.0-33.0); MEAN CORPUSCULAR HGB CONC 33.8 g/dL (32.0-36.0); MEAN CORPUSCULAR VOLUME 86.7 fL (79-99); MONOCYTES % (AUTO) 7.1 % (3.0-13.0); NEUTROPHILS % (AUTO) 54.8 % (40.0-77.0); PLATELET COUNT (AUTO) 24 K/uL (130-400); RED BLOOD CELL COUNT(AUTO) 2.63 MIL/uL (4.00-5.50); RED CELL DISTRIBUTION WIDTH 15.3 % (11.0-15.5); WHITE BLOOD COUNT (AUTO) 1.3 K/uL (4.8-10.8)
[2020-04-23 05:54] LABS: ALBUMIN 2.2 g/dL (3.5-5.0); BILIRUBIN,TOTAL 0.6 mg/dL (0.2-1.0); POTASSIUM 3.9 mmol/L (3.5-5.1); TOTAL PROTEIN, SERUM 4.6 g/dL (6.0-8.3); URIC ACID 12.8 mg/dL (2.6-7.2)
[2020-04-23 07:46] VITALS: BP 118/59
[2020-04-23] MEDS: BIOTENE 44.3 ML SOLUTION MM SCH ×3 (09:00→21:01)
[2020-04-23] MEDS: CLOTRIMAZOLE 10 MG TROCHE MM SCH ×4 (09:47→21:00)
[2020-04-23] MEDS: CALCIUM AC 667MG CAP PO SCH ×3 (09:47→17:23)
[2020-04-23] MEDS: ALLOPURINOL 100 MG TABLET PO SCH (09:47)
[2020-04-23 11:44] VITALS: BP 108/49
[2020-04-23 16:07] VITALS: BP 121/62
[2020-04-23 19:27] VITALS: BP 146/79
[2020-04-23] MEDS: ACETAMINOPHEN 325 MG TAB PO PRN (23:05)
[2020-04-24 00:12] VITALS: BP 135/67
[2020-04-24 03:15] VITALS: BP 119/64
[2020-04-24 03:57] LABS: EOSINOPHILS % (AUTO) 1.1 % (0.0-8.0); MEAN CORPUSCULAR HEMOGLOBIN 29.7 pg (27.0-33.0); MEAN CORPUSCULAR VOLUME 87.5 fL (79-99); MONOCYTES % (AUTO) 13.6 % (3.0-13.0); NEUTROPHILS % (AUTO) 37.6 % (40.0-77.0); PLATELET COUNT (AUTO) 26 K/uL (130-400); RED BLOOD CELL COUNT(AUTO) 2.32 MIL/uL (4.00-5.50)
[2020-04-24 04:09] LABS: HEMATOCRIT 20.3 % (36-48); WHITE BLOOD COUNT (AUTO) 0.9 K/uL (4.8-10.8)
[2020-04-24 04:12] LABS: ALBUMIN 2.1 g/dL (3.5-5.0); BILIRUBIN,TOTAL 0.6 mg/dL (0.2-1.0); CREATININE 3.1 mg/dL (0.5-1.5); MAGNESIUM 1.8 mg/dL (1.80-2.40); PHOSPHORUS 7.6 mg/dL (2.5-4.9); POTASSIUM 3.5 mmol/L (3.5-5.1); TOTAL PROTEIN, SERUM 4.3 g/dL (6.0-8.3); URIC ACID 12.7 mg/dL (2.6-7.2)
[2020-04-24 07:29] VITALS: BP 108/54
[2020-04-24] MEDS: CLOTRIMAZOLE 10 MG TROCHE MM SCH ×2 (09:00→11:42)
[2020-04-24] MEDS: BIOTENE 44.3 ML SOLUTION MM SCH ×3 (09:00→20:24)
[2020-04-24] MEDS: ALLOPURINOL 100 MG TABLET PO SCH (09:59)
[2020-04-24] MEDS: CALCIUM AC 667MG CAP PO SCH ×2 (11:42→16:13)
[2020-04-24 11:50] VITALS: BP 104/60
[2020-04-24 12:03] LABS: HEMATOCRIT 24.6 % (36-48)
[2020-04-24 16:09] VITALS: BP 125/64
[2020-04-24] MEDS: CEFAZOLIN SODIUM 1 GM VIAL IVP SCH ×2 (16:12→20:24)
[2020-04-24 23:45] VITALS: BP 138/65
[2020-04-25] VITALS (7 sets, daily range): BP systolic 116–135; BP diastolic 56–71
[2020-04-25] MEDS: ACETAMINOPHEN 325 MG TAB PO PRN (03:22)
[2020-04-25 03:41] LABS: BASOPHILS % (AUTO) 0.9 % (0.0-5.0); EOSINOPHILS % (AUTO) 0.9 % (0.0-8.0); HEMATOCRIT 23.8 % (36-48); LYMPHOCYTES % (AUTO) 46.5 % (21.0-51.0); MEAN CORPUSCULAR HEMOGLOBIN 28.8 pg (27.0-33.0); MEAN CORPUSCULAR HGB CONC 32.8 g/dL (32.0-36.0); MEAN CORPUSCULAR VOLUME 87.8 fL (79-99); MONOCYTES % (AUTO) 20.2 % (3.0-13.0); NEUTROPHILS % (AUTO) 30.6 % (40.0-77.0); PLATELET COUNT (AUTO) 43 K/uL (130-400); RED BLOOD CELL COUNT(AUTO) 2.71 MIL/uL (4.00-5.50); RED CELL DISTRIBUTION WIDTH 15.1 % (11.0-15.5)
[2020-04-25 03:54] LABS: WHITE BLOOD COUNT (AUTO) 1.1 K/uL (4.8-10.8)
[2020-04-25 03:58] LABS: CREATININE 3.4 mg/dL (0.5-1.5); PHOSPHORUS 6.7 mg/dL (2.5-4.9); URIC ACID 11.7 mg/dL (2.6-7.2)
[2020-04-25] MEDS: CALCIUM AC 667MG CAP PO SCH ×3 (08:00→16:23)
[2020-04-25] MEDS: ALLOPURINOL 100 MG TABLET PO SCH (08:00)
[2020-04-25] MEDS: CEFAZOLIN SODIUM 1 GM VIAL IVP SCH ×2 (08:01→20:21)
[2020-04-25] MEDS: BIOTENE 44.3 ML SOLUTION MM SCH ×3 (08:03→20:21)
[2020-04-25] MEDS: TBO-FILGRASTIM 480 MCG/0.8 ML ML SQ SCH (22:49)
[2020-04-26] VITALS (9 sets, daily range): BP systolic 116–132; BP diastolic 54–65
[2020-04-26 05:49] LABS: BASOPHILS % (AUTO) 2.2 % (0.0-5.0); EOSINOPHILS % (AUTO) 0.5 % (0.0-8.0); HEMATOCRIT 28.3 % (36-48); LYMPHOCYTES % (AUTO) 21.5 % (21.0-51.0); MEAN CORPUSCULAR HEMOGLOBIN 29.4 pg (27.0-33.0); MEAN CORPUSCULAR HGB CONC 33.9 g/dL (32.0-36.0); MEAN CORPUSCULAR VOLUME 86.5 fL (79-99); MONOCYTES % (AUTO) 32.8 % (3.0-13.0); NEUTROPHILS % (AUTO) 42.5 % (40.0-77.0); PLATELET COUNT (AUTO) 41 K/uL (130-400); RED BLOOD CELL COUNT(AUTO) 3.27 MIL/uL (4.00-5.50); RED CELL DISTRIBUTION WIDTH 14.6 % (11.0-15.5); WHITE BLOOD COUNT (AUTO) 1.9 K/uL (4.8-10.8)
[2020-04-26 06:01] LABS: CREATININE 3.2 mg/dL (0.5-1.5); MAGNESIUM 1.8 mg/dL (1.80-2.40); POTASSIUM 3.1 mmol/L (3.5-5.1)
[2020-04-26] MEDS: CALCIUM AC 667MG CAP PO SCH ×3 (08:00→16:38)
[2020-04-26] MEDS ORDERED: TBO-FILGRASTIM 480 MCG/0.8 ML ML SQ SCH (09:00)
[2020-04-26] MEDS: CEFAZOLIN SODIUM 1 GM VIAL IVP SCH ×2 (09:00→09:42)
[2020-04-26] MEDS: BIOTENE 44.3 ML SOLUTION MM SCH ×3 (09:00→21:00)
[2020-04-26] MEDS: TBO-FILGRASTIM 480 MCG/0.8 ML ML SQ SCH (09:00)
[2020-04-26] MEDS: ALLOPURINOL 100 MG TABLET PO SCH (09:27)
[2020-04-26] MEDS ORDERED: KCL 20 MEQ ERTAB PO SCH (16:30)
[2020-04-27] VITALS: BP 139/69
[2020-04-27 06:03] LABS: BASOPHILS % (AUTO) 1.2 % (0.0-5.0); EOSINOPHILS % (AUTO) 0.2 % (0.0-8.0); HEMATOCRIT 27.2 % (36-48); LYMPHOCYTES % (AUTO) 11.3 % (21.0-51.0); MEAN CORPUSCULAR HEMOGLOBIN 28.8 pg (27.0-33.0); MEAN CORPUSCULAR HGB CONC 33.1 g/dL (32.0-36.0); MEAN CORPUSCULAR VOLUME 87.2 fL (79-99); MONOCYTES % (AUTO) 17.3 % (3.0-13.0); NEUTROPHILS % (AUTO) 68.2 % (40.0-77.0); PLATELET COUNT (AUTO) 63 K/uL (130-400); RED BLOOD CELL COUNT(AUTO) 3.12 MIL/uL (4.00-5.50)
[2020-04-27 06:34] LABS: CREATININE 2.9 mg/dL (0.5-1.5); MAGNESIUM 1.7 mg/dL (1.80-2.40); URIC ACID 9.2 mg/dL (2.6-7.2)
[2020-04-27 06:40] LABS: POTASSIUM 2.6 mmol/L (3.5-5.1)
[2020-04-27 08:00] VITALS: BP 113/53
[2020-04-27] MEDS: CEFAZOLIN SODIUM 1 GM VIAL IVP SCH (08:35)
[2020-04-27] MEDS: ALLOPURINOL 100 MG TABLET PO SCH (08:35)
[2020-04-27] MEDS: CALCIUM AC 667MG CAP PO SCH ×2 (08:35→12:06)
[2020-04-27] MEDS: BIOTENE 44.3 ML SOLUTION MM SCH ×2 (08:55→14:00)
[2020-04-27] MEDS ORDERED: KCL 20 MEQ ERTAB PO ONE (09:15)
[2020-04-27 11:11] VITALS: BP 119/59
[2020-04-27] MEDS ORDERED: KCL 20 MEQ ERTAB PO SCH (12:00)
[2020-04-27] MEDS ORDERED: MAGNESIUM 2GM PREMIX 50ML 50 ML IV SCH (12:30)
[2020-04-27] MEDS ORDERED: MAGNESIUM 2GM PREMIX 50ML 50 ML IV ONE (12:39)
[2020-04-27 16:00] VITALS: BP 121/60
[2020-04-27 19:31] VITALS: BP 135/66
[2020-04-27] MEDS ORDERED: TBO-FILGRASTIM 480 MCG/0.8 ML ML SQ SCH (21:00)
[2020-04-27 23:50] VITALS: BP 130/58
[2020-04-28 03:58] VITALS: BP 119/48
[2020-04-28 04:54] LABS: BASOPHILS % (AUTO) 0.9 % (0.0-5.0); EOSINOPHILS % (AUTO) 0.1 % (0.0-8.0); HEMATOCRIT 27.9 % (36-48); LYMPHOCYTES % (AUTO) 4.5 % (21.0-51.0); MEAN CORPUSCULAR HEMOGLOBIN 29.1 pg (27.0-33.0); MEAN CORPUSCULAR VOLUME 88.3 fL (79-99); MONOCYTES % (AUTO) 11.8 % (3.0-13.0); NEUTROPHILS % (AUTO) 77.1 % (40.0-77.0); PLATELET COUNT (AUTO) 82 K/uL (130-400); RED BLOOD CELL COUNT(AUTO) 3.16 MIL/uL (4.00-5.50); WHITE BLOOD COUNT (AUTO) 10.5 K/uL (4.8-10.8)
[2020-04-28 05:18] LABS: CREATININE 2.4 mg/dL (0.5-1.5); MAGNESIUM 1.7 mg/dL (1.80-2.40)
[2020-04-28 05:20] LABS: POTASSIUM 2.8 mmol/L (3.5-5.1)
[2020-04-28 08:00] VITALS: BP 122/51
[2020-04-28] MEDS ORDERED: ALLOPURINOL 100 MG TABLET PO SCH (08:46)
[2020-04-28] MEDS: BIOTENE 44.3 ML SOLUTION MM SCH ×3 (09:00→20:09)
[2020-04-28] MEDS ORDERED: CEFAZOLIN SODIUM 1 GM VIAL ONE (09:51)
[2020-04-28] MEDS: ALLOPURINOL 100 MG TABLET PO SCH (10:06)
[2020-04-28] MEDS: CEFAZOLIN SODIUM 1 GM VIAL IVP SCH ×2 (10:06→20:07)
[2020-04-28 11:50] VITALS: BP 112/53
[2020-04-28] MEDS ORDERED: KCL 20 MEQ ERTAB PO SCH (12:30)
[2020-04-28] MEDS ORDERED: MAGNESIUM 2GM PREMIX 50ML 50 ML IV SCH (12:30)
[2020-04-28 16:00] VITALS: BP 125/56
[2020-04-28 20:08] VITALS: BP 131/59
[2020-04-28 23:21] VITALS: BP 139/64
[2020-04-29 03:00] VITALS: BP 125/57
[2020-04-29 03:46] LABS: BASOPHILS % (AUTO) 1.2 % (0.0-5.0); EOSINOPHILS % (AUTO) 0.1 % (0.0-8.0); LYMPHOCYTES % (AUTO) 4.2 % (21.0-51.0); MEAN CORPUSCULAR HEMOGLOBIN 28.9 pg (27.0-33.0); MEAN CORPUSCULAR HGB CONC 32.5 g/dL (32.0-36.0); MEAN CORPUSCULAR VOLUME 88.9 fL (79-99); NEUTROPHILS % (AUTO) 82.5 % (40.0-77.0); PLATELET COUNT (AUTO) 113 K/uL (130-400); RED BLOOD CELL COUNT(AUTO) 3.15 MIL/uL (4.00-5.50); RED CELL DISTRIBUTION WIDTH 15.3 % (11.0-15.5); WHITE BLOOD COUNT (AUTO) 8.9 K/uL (4.8-10.8)
[2020-04-29 03:54] LABS: CREATININE 2.1 mg/dL (0.5-1.5)
[2020-04-29 07:56] VITALS: BP 122/62
[2020-04-29] MEDS: BIOTENE 44.3 ML SOLUTION MM SCH ×2 (09:00→14:00)
[2020-04-29] MEDS ORDERED: KCL 20 MEQ ERTAB PO SCH (09:00)
[2020-04-29] MEDS: CEFAZOLIN SODIUM 1 GM VIAL IVP SCH (09:45)
[2020-04-29] MEDS: ALLOPURINOL 100 MG TABLET PO SCH (10:18)
[2020-04-29 11:00] VITALS: BP 121/59
== END 2020-04-29 14:36 | disposition home or self-care (01) | DRG 682 ==
LOC: EDH 18:40 → EDHIP 21:40 → 4DH 04-17 04:26 → 4CH 04-25 09:09
PROVIDERS: ADMIT Family Medicine; ATTEND Family Medicine
PROC: 5A1D70Z Performance of Urinary Filtration, Intermittent, Less than 6 Hours Per Day (ICD-10-PCS; 2020-04-17)
PROC: 05HN33Z Insertion of Infusion Device into Left Internal Jugular Vein, Percutaneous Approach (ICD-10-PCS; 2020-04-17)
PROC: B5141ZA Fluoroscopy of Left Jugular Veins using Low Osmolar Contrast, Guidance (ICD-10-PCS; 2020-04-17)
PROC: B544ZZA Ultrasonography of Left Jugular Veins, Guidance (ICD-10-PCS; 2020-04-17)
PROC: 30233R1 Transfusion of Nonautologous Platelets into Peripheral Vein, Percutaneous Approach (ICD-10-PCS; principal; 2020-04-18)
PROC: 5A1D70Z Performance of Urinary Filtration, Intermittent, Less than 6 Hours Per Day (ICD-10-PCS; 2020-04-18)
PROC: 5A1D70Z Performance of Urinary Filtration, Intermittent, Less than 6 Hours Per Day (ICD-10-PCS; 2020-04-19)
PROC: 5A1D70Z Performance of Urinary Filtration, Intermittent, Less than 6 Hours Per Day (ICD-10-PCS; 2020-04-22)
PROC: 30233N1 Transfusion of Nonautologous Red Blood Cells into Peripheral Vein, Percutaneous Approach (ICD-10-PCS; 2020-04-25)
DX: E88.3 Tumor lysis syndrome (principal); D61.810 Antineoplastic chemotherapy induced pancytopenia; N18.6 End stage renal disease; I50.21 Acute systolic (congestive) heart failure; C85.90 Non-Hodgkin lymphoma, unspecified, unspecified site; E87.1 Hypo-osmolality and hyponatremia; E87.2 Acidosis; D61.818 Other pancytopenia; N39.0 Urinary tract infection, site not specified; C83.30 Diffuse large B-cell lymphoma, unspecified site; I13.2 Hypertensive heart and chronic kidney disease with heart failure and with stage 5 chronic kidney disease, or end stage renal disease; N17.9 Acute kidney failure, unspecified; E87.5 Hyperkalemia; D69.59 Other secondary thrombocytopenia; B95.61 Methicillin susceptible Staphylococcus aureus infection as the cause of diseases classified elsewhere; T45.1X5A Adverse effect of antineoplastic and immunosuppressive drugs, initial encounter; Y92.89 Other specified places as the place of occurrence of the external cause; Z99.2 Dependence on renal dialysis; E11.22 Type 2 diabetes mellitus with diabetic chronic kidney disease; E79.0 Hyperuricemia without signs of inflammatory arthritis and tophaceous disease; K12.30 Oral mucositis (ulcerative), unspecified; I48.91 Unspecified atrial fibrillation; E83.52 Hypercalcemia; Z66 Do not resuscitate; D70.9 Neutropenia, unspecified; D64.9 Anemia, unspecified; E87.8 Other disorders of electrolyte and fluid balance, not elsewhere classified; E83.39 Other disorders of phosphorus metabolism; E83.51 Hypocalcemia; E87.6 Hypokalemia; Z79.899 Other long term (current) drug therapy; Z80.42 Family history of malignant neoplasm of prostate; Z82.3 Family history of stroke; Z83.3 Family history of diabetes mellitus; Z20.822 Contact with and (suspected) exposure to COVID-19
CPT/HCPCS: 36415; 36430; 36556; 71045; 77001; 80048; 80053; 80061; 81001; 82040; 82436; 82550; 82565; 82570; 82728; 83036; 83540; 83550; 83605; 83735; 83880; 83935; 84100; 84132; 84133; 84300; 84484; 84520; 84550; 85014; 85018; 85025; 85027; 85610; 85730; 86140; 86701; 86704; 86706; 86850; 86900; 86901; 86923; 87040; 87070; 87077; 87088; 87186; 87340; 87390; 87426; 87520; 87804; 87880; 90935; 92610; 93005; 94640; 94644; 97039; 99291; C1752; G0378; J0610; J0690; J0696; J1100; J1200; J1644; J1815; J1940; J3370; J3475; J3490; J7030; J7042; J7070; P9016; P9034; U0003

== ENCOUNTER 2021-01-08 20:54 | Inpatient (IN) | payer MEDICARE ==
[~2021-01-08] VITALS: Ht 154.9 cm; Wt 50.8 kg
[2021-01-08 23:28] LABS: CREATININE 0.8 mg/dL (0.5-1.5); POTASSIUM 3.7 mmol/L (3.5-5.1)
[2021-01-08 23:31] LABS: EOSINOPHILS % (AUTO) 31.1 % (0.0-8.0); HEMATOCRIT 32.8 % (36-48); LYMPHOCYTES % (AUTO) 6.6 % (21.0-51.0); MEAN CORPUSCULAR HEMOGLOBIN 32.7 pg (27.0-33.0); MEAN CORPUSCULAR HGB CONC 31.4 g/dL (32.0-36.0); MEAN CORPUSCULAR VOLUME 104.1 fL (79-99); MONOCYTES % (AUTO) 38.1 % (3.0-13.0); NEUTROPHILS % (AUTO) 21.1 % (40.0-77.0); NUCLEATED RED BLOOD CELLS 0.3 % (0.0-0.19); PLATELET COUNT (AUTO) 56 K/uL (130-400); RED BLOOD CELL COUNT(AUTO) 3.15 MIL/uL (4.00-5.50); RED CELL DISTRIBUTION WIDTH 20.4 % (11.0-15.5); WHITE BLOOD COUNT (AUTO) 12.2 K/uL (4.8-10.8)
[2021-01-08 23:36] LABS: ALBUMIN 2.7 g/dL (3.5-5.0); BILIRUBIN,TOTAL 1.2 mg/dL (0.2-1.0)
[2021-01-08] MEDS ORDERED: ZOSYN 3.375GM+NS 50ML 50 ML ONE (23:50)
[2021-01-09] MEDS ORDERED: ZOSYN 3.375GM+NS 50ML 3.38 GM in 0.9%NACL 50ML 50 ML IV SCH ×2
[2021-01-09] MEDS ORDERED: ASCO250T24 PO (03:21)
[2021-01-09] MEDS ORDERED: SULF1TAB42 PO (03:21)
[2021-01-09] MEDS ORDERED: VALG450T3 PO (03:21)
[2021-01-09] MEDS ORDERED: POSA100T2 PO (03:21)
[2021-01-09] MEDS ORDERED: MULT-1367 PO (03:21)
[2021-01-09] MEDS ORDERED: MORPHINE 4 MG SYG IV PRN (03:30)
[2021-01-09] MEDS ORDERED: ACETAMINOPHEN 325 MG TAB PO PRN (03:30)
[2021-01-09] MEDS ORDERED: HYDROCODONE/ACETAMINOPHEN 5/325 MG TAB PO PRN (03:30)
[2021-01-09] MEDS: GUAIFENESIN-DM 200/20 MG 10 ML PO PRN ×2 (04:20→12:42)
[2021-01-09] MEDS: ZOSYN 3.375GM+NS 50ML 50 ML IV SCH ×3 (08:00→20:00)
[2021-01-09] MEDS ORDERED: 0.9%NACL 50ML 50 ML IV ONE ×2 (08:16→14:32)
[2021-01-09] MEDS: FAMOTIDINE 20MG TAB PO SCH (08:24)
[2021-01-09] MEDS: ENOXAPARIN SODIUM 30 MG/0.3 ML SQ SCH (09:00)
[2021-01-09 09:33] LABS: CREATININE 0.8 mg/dL (0.5-1.5); CRP QUANTITATIVE 11.5 mg/L (0.00-9.0); POTASSIUM 3.5 mmol/L (3.5-5.1)
[2021-01-09 16:17] LABS: BASOPHILS % (AUTO) 1.9 % (0.0-5.0); EOSINOPHILS % (AUTO) 30.1 % (0.0-8.0); HEMATOCRIT 32.6 % (36-48); LYMPHOCYTES % (AUTO) 5.9 % (21.0-51.0); MEAN CORPUSCULAR HEMOGLOBIN 32.7 pg (27.0-33.0); MEAN CORPUSCULAR VOLUME 105.5 fL (79-99); MONOCYTES % (AUTO) 37.4 % (3.0-13.0); NEUTROPHILS % (AUTO) 23.7 % (40.0-77.0); NUCLEATED RED BLOOD CELLS 0.3 % (0.0-0.19); PLATELET COUNT (AUTO) 48 K/uL (130-400); RED BLOOD CELL COUNT(AUTO) 3.09 MIL/uL (4.00-5.50); RED CELL DISTRIBUTION WIDTH 20.4 % (11.0-15.5); WHITE BLOOD COUNT (AUTO) 12.5 K/uL (4.8-10.8)
[2021-01-09 18:59] VITALS: BP 138/61
[2021-01-09 19:00] VITALS: BP 138/59
[2021-01-09] MEDS ORDERED: SULFAMETHOX-TMP DS 800/160 TAB ONE (19:10)
[2021-01-09] MEDS: SULFAMETHOX-TMP DS 800/160 TAB PO SCH (20:00)
[2021-01-09] MEDS: VALGANCICLOVIR HCL 450 MG TABLET PO SCH (20:01)
[2021-01-10] MEDS: ZOSYN 3.375GM+NS 50ML 50 ML IV SCH ×2 (03:57→13:21)
[2021-01-10 04:00] VITALS: BP 130/60
[2021-01-10 04:17] LABS: BASOPHILS % (AUTO) 1.6 % (0.0-5.0); EOSINOPHILS % (AUTO) 29.7 % (0.0-8.0); HEMATOCRIT 31.3 % (36-48); LYMPHOCYTES % (AUTO) 5.8 % (21.0-51.0); MEAN CORPUSCULAR HEMOGLOBIN 32.2 pg (27.0-33.0); MONOCYTES % (AUTO) 41.1 % (3.0-13.0); NEUTROPHILS % (AUTO) 20.7 % (40.0-77.0); NUCLEATED RED BLOOD CELLS 0.3 % (0.0-0.19); PLATELET COUNT (AUTO) 37 K/uL (130-400); RED BLOOD CELL COUNT(AUTO) 3.01 MIL/uL (4.00-5.50); RED CELL DISTRIBUTION WIDTH 20.3 % (11.0-15.5)
[2021-01-10 04:33] LABS: CREATININE 0.8 mg/dL (0.5-1.5); MAGNESIUM 1.7 mg/dL (1.80-2.40); PHOSPHORUS 3.7 mg/dL (2.5-4.9)
[2021-01-10] MEDS ORDERED: MAGNESIUM 2GM PREMIX 50ML 50 ML IV PRN (06:00)
[2021-01-10] MEDS ORDERED: KCL 20 MEQ ERTAB PO PRN (06:00)
[2021-01-10] MEDS ORDERED: POTASSIUM CHLORIDE 20MEQ/100ML 100 ML IV PRN (06:00)
[2021-01-10] MEDS ORDERED: LIDOCAINE HCL-MPF 1% 2ML VIAL IV PRN (06:00)
[2021-01-10] MEDS ORDERED: POTASSIUM CHLORIDE 10% ELIXIR 20 MEQ/15 ML UDCUP PO PRN (06:00)
[2021-01-10 07:39] VITALS: BP 128/56
[2021-01-10] MEDS ORDERED: ASCORBIC ACID 500 MG TAB PO SCH (09:00)
[2021-01-10] MEDS ORDERED: MULTIVITAMIN TABLET PO SCH (09:00)
[2021-01-10] MEDS: SULFAMETHOX-TMP DS 800/160 TAB PO SCH (09:00)
[2021-01-10] MEDS ORDERED: POSACONAZOLE 300 MG PO SCH (09:00)
[2021-01-10] MEDS: FAMOTIDINE 20MG TAB PO SCH (09:00)
[2021-01-10] MEDS: ENOXAPARIN SODIUM 30 MG/0.3 ML SQ SCH (09:00)
[2021-01-10] MEDS: VALGANCICLOVIR HCL 450 MG TABLET PO SCH (09:00)
[2021-01-10] MEDS ORDERED: SODIUM CHLORIDE 3% FOR INHALATION 4 ML/AMP VIAL.NEB IH ONE (09:10)
[2021-01-10] MEDS ORDERED: MAGNESIUM OXIDE 400 MG TABLET PO SCH (10:30)
[2021-01-10 11:10] VITALS: BP 108/55
[2021-01-10 15:42] VITALS: BP 156/68
[2021-01-10] MEDS ORDERED: AMOX-429 PO (16:54)
== END 2021-01-10 17:24 | disposition home or self-care (01) | DRG 193 ==
LOC: EDH 20:54 → EDHIP 23:52 → 4BH 01-09 14:37
PROVIDERS: ADMIT Internal Medicine; ATTEND Internal Medicine
DX: J18.9 Pneumonia, unspecified organism (principal); J96.01 Acute respiratory failure with hypoxia; C95.92 Leukemia, unspecified, in relapse; Y95 Nosocomial condition; R77.8 Other specified abnormalities of plasma proteins; Z85.72 Personal history of non-Hodgkin lymphomas; Z87.01 Personal history of pneumonia (recurrent); Z83.3 Family history of diabetes mellitus; Z80.42 Family history of malignant neoplasm of prostate; Z82.3 Family history of stroke
CPT/HCPCS: 36415; 71045; 80048; 80053; 83605; 83735; 84100; 84145; 84484; 85025; 86140; 87040; 92526; 93005; 94640; 94760; G0378; J1650; J2543; J3475

== ENCOUNTER 2021-01-13 23:53 | Emergency (ER) | payer MEDICARE ==
[~2021-01-13] VITALS: Ht 149.9 cm; Wt 53.5 kg
[~2021-01-13 23:53] MED LIST changes: +AMOX-429 PO; +ASCO250T24 PO; -ASPI-1005 PO; -FURO20TA6 PO; -METO25 PO; +MULT-1367 PO; +POSA100T2 PO; -POTA-10 PO; +SULF1TAB42 PO; +VALG450T3 PO
[2021-01-14 02:14] LABS: BASOPHILS % (AUTO) 1.5 % (0.0-5.0); EOSINOPHILS % (AUTO) 35.7 % (0.0-8.0); LYMPHOCYTES % (AUTO) 5.8 % (21.0-51.0); MEAN CORPUSCULAR HEMOGLOBIN 32.6 pg (27.0-33.0); MEAN CORPUSCULAR HGB CONC 30.9 g/dL (32.0-36.0); MEAN CORPUSCULAR VOLUME 105.6 fL (79-99); MONOCYTES % (AUTO) 36.9 % (3.0-13.0); NEUTROPHILS % (AUTO) 17.5 % (40.0-77.0); NUCLEATED RED BLOOD CELLS 0.6 % (0.0-0.19); PLATELET COUNT (AUTO) 52 K/uL (130-400); RED BLOOD CELL COUNT(AUTO) 3.22 MIL/uL (4.00-5.50); RED CELL DISTRIBUTION WIDTH 20.2 % (11.0-15.5)
[2021-01-14 02:23] LABS: CREATININE 0.8 mg/dL (0.5-1.5); POTASSIUM 4.2 mmol/L (3.5-5.1)
[2021-01-14 02:24] LABS: INR 1.54 (0.85-1.15); PROTHROMBIN TIME 16.1 SEC (9.6-11.6)
[2021-01-14 02:25] LABS: PARTIAL THROMBOPLASTIN TIME 26.1 SEC (26.3-35.5)
[2021-01-14 02:27] LABS: ALBUMIN 2.7 g/dL (3.5-5.0); BILIRUBIN,TOTAL 1.3 mg/dL (0.2-1.0); MAGNESIUM 1.9 mg/dL (1.80-2.40); TOTAL PROTEIN, SERUM 4.9 g/dL (6.0-8.3)
[2021-01-14 02:31] LABS: BILIRUBIN,URINE Small (NEGATIVE); COLOR,URINE Dark Yellow (YELLOW); GLUCOSE, URINE (UA) Negative (NEGATIVE); KETONES,URINE Trace mg/dL (NEGATIVE); LEUKOCYTE ESTERASE ,URINE Trace (NEGATIVE); NITRATE,URINE Negative (NEGATIVE); OCCULT BLOOD,URINE Negative (NEGATIVE); PROTEIN,URINE POS 2+ mg/dL (NEGATIVE)
[2021-01-14 02:32] LABS: APPEARANCE,URINE CLOUDY (CLEAR)
[2021-01-14 02:33] LABS: B-TYPE NATRIURETIC PEPTIDE 354 pg/mL (0-100)
[2021-01-14 02:44] LABS: BACTERIA,URINE None Seen /HPF (None Seen); CALCIUM OXALATE CRYSTALS,UR Moderate /LPF (None Seen); MUCUS,URINE Rare LPF (None Seen); RBC,URINE None Seen /HPF (0-1); SQUAMOUS EPITHELIAL CELL,UR Few /HPF (0-2); WBC,URINE 0-1 /HPF (0-1)
[2021-01-14 04:20] VITALS: BP 130/66
== END 2021-01-14 04:27 | disposition home or self-care (01) ==
LOC: EDH 23:53
DX: R06.02 Shortness of breath (principal); J18.9 Pneumonia, unspecified organism; I50.9 Heart failure, unspecified; R74.8 Abnormal levels of other serum enzymes; Z79.899 Other long term (current) drug therapy; Z85.6 Personal history of leukemia
CPT/HCPCS: 36415; 71045; 80053; 81001; 82550; 83735; 83880; 84484; 85025; 85610; 85730; 93005